=== PATIENT | female | born 1990 | race Caucasian/White ===

== ENCOUNTER 2016-04-03 16:20 | Emergency (ER) | payer OTHER ==
[~2016-04-03] VITALS: Ht 165.1 cm; Wt 86.2 kg
[~2016-04-03 16:20] MED LIST: FLEXERIL10 MG PO; FLUTICASON0.05 MG/A2 NAS; PERCOCET 325 MG1 TA2 PO; SEASONIQUE 30 M1 TAB PO; TYLENOL #31 TAB PO; VITAMIN D1000 IU PO; ZITHROMAX Z-PA250 M1 PO
[2016-04-03 17:05] LABS: ABSOLUTE BASOPHIL COUNT 0.1 /CUMM (0.0-0.2); ABSOLUTE EOSINOPHIL COUNT 0.1 /CUMM (0.0-0.7); ABSOLUTE GRANULOCYTE CT 8.2 /CUMM (1.4-6.5); ABSOLUTE LYMPH COUNT 2.3 /CUMM (1.2-3.4); ABSOLUTE MONOCYTE COUNT 0.8 /CUMM (0.10-0.60); BASOPHIL % 0.5 % (0.0-2.0); EOSINOPHIL % 0.9 % (0-5); GRANULOCYTE % 71.4 % (42.2-75.2); HEMATOCRIT 39.2 % (37-47); MEAN CORPUSCULAR HGB 31.9 PG (27.0-31.0); MEAN CORPUSCULAR HGB CONC 33.9 G/DL (33.0-37.0); MEAN CORPUSCULAR VOLUME 94.2 FL (81.0-99.0); MEAN PLATELET VOLUME 8.1 FL (7.4-10.4); PLATELET COUNT 267 /CUMM (130-400); RBC DISTRIBUTION WIDTH 12.5 % (11.5-14.5); RED BLOOD CELL CT 4.16 /CUMM (4.20-5.40); WHITE BLOOD CELL COUNT 11.5 /CUMM (4.8-10.8)
--- NOTE | 2016-04-03 17:56 | ED GI/GU/ABDOMINAL COMPLAINT ---
History of Present Illness General Chief Complaint: Female Urogenital Problems Stated Complaint: CRAMPING W/BLEEDING, APPROX 4 WEEKS PREG Source: patient Exam Limitations: no limitations Vital Signs & Intake/Output Vital Signs & Intake/Output Vital Signs Date Time Temp Pulse Resp B/P Pulse O2 O2 Flow FiO2 Ox Delivery Rate 04/03 1946 98.2 88 18 124/72 98 Room Air Room Air 04/03 1624 98.0 94 18 129/75 100 Room Air ED Intake and Output 04/04 0000 04/03 1200 Intake Total Output Total Balance Patient 190 lb Weight Allergies Coded Allergies: NO KNOWN ALLERGIES (04/15/14) Reconcile Medications No Known Home Medications Triage Note: PT ?4WEEKS TO TRIAGE WITH C/O LOWER ABD CRAMPING AND VAGINAL SPOTTING SINCE YESTERDAY, ALSO PT PASSED VAGINAL BLOOD CLOT YESTERDAY. PT DIDN'T SEE HER OBGYN YET, TOOK TEST A WEEK AGO AND IT WAS POSITIVE. VSS. . HX OF . Triage Nurses Notes Reviewed? yes ? Y Is pt currently ? No HPI: THIS PATIENT IS A 25-YEAR-OLD G3A2P0 female who presented to the emergency department today for evaluation of vaginal bleeding. The patient reported that approximately a week and a half ago she took a home test which was positive. She reported that she does not currently have an LICENSED LOAN OFFICER ASSISTANT and has not had an ultrasound confirming the at this time. The patient reported that yesterday she passed one clot and then since that time she has had some, "orange-colored," vaginal discharge. She reported some mild, 4 out of 10 left lower quadrant abdominal cramping which is nonradiating and intermittent. She reported that she had her first miscarriage around the first month of and she had an emergent surgery for a miscarriage in the sixth month of her second . The patient reported some associated nausea. She denied any vomiting, fevers, chills, back pain, urinary burning, urgency, frequency, blood in the urine, or any other associated symptoms. Past History Travel History Traveled to [place] past 21 day No Medical History Any Pertinent Medical History? see below for history Neurological: NONE EENT: NONE Cardiovascular: NONE Respiratory: NONE Gastrointestinal: NONE Hepatic: NONE Renal: NONE Musculoskeletal: NONE Psychiatric: NONE Endocrine: NONE Blood Disorders: NONE Cancer(s): NONE Surgical History Surgical History: MISCARRIAGE IN 6 MONTH OF Psychosocial History What is your primary language Latvian Tobacco Use: Current Daily Use Daily Tobacco Use Amount/Type: =< 4 Cigarettes daily ETOH Use: denies use Illicit Drug Use: denies illicit drug use Family History Hx Contributory? No Review of Systems Review of Systems Constitutional: Reports: no symptoms. EENTM: Reports: no symptoms. Respiratory: Reports: no symptoms. Cardiovascular: Reports: no symptoms. GI: Reports: see HPI. Genitourinary: Reports: see HPI. Musculoskeletal: Reports: no symptoms. Skin: Reports: no symptoms. Neurological/Psychological: Reports: no symptoms. All Other Systems: Reviewed and Negative Physical Exam Physical Exam Gastrointestinal: normal bowel sounds, soft, no organomegaly, MILD TENDERNESS TO PALPATION IN THE LEFT GROIN REGION. nO mCbURNEY'S POINT TENDERNESS. nEGATIVE [place] SIGN. nEGATIVE rOVSING'S AND PSOAS SIGN. nO REBOUND OR GUARDING. Comments: Well-developed well-nourished person in no acute distress HEENT: Normal EENT exam, head normocephalic, moist mucous membranes Neck: Supple Back: Normal gait Cardiovascular: Regular rate and rhythm with no murmurs Respiratory: No respiratory distress. Speaking in full sentences Extremity: Normal and equal pulses Neuro: Alert oriented x3, cranial nerves II through XII grossly intact. Skin: No appreciable rash on exposed skin, skin is warm and dry. Psych: Mood and affect is normal Core Measures ACS in differential dx? No Severe Sepsis Present: No Septic Shock Present: No Progress Differential Diagnosis: appendicitis, biliary colic, bowel obstruction, colon cancer, cholecystitis, diverticulitis, ectopic , endometritis, gastritis, hepatitis, ischemic bowel, inflamm bowel dis, intrauterine , kidney stone, ovarian cyst, ovarian torsion, pancreatitis, PID/cervicitis, PUD/ GERD, perforated viscous, SBO, threatened AB, UTI/pyelo Plan of Care: Orders Procedure Date/time Status TYPE & SCREEN (NOT X-MATCH) 04/03 1656 Complete HUMAN BETA HCG TITRE 04/03 1649 Complete COMPREHENSIVE METABOLIC PANEL 04/03 1649 Complete CBC WITHOUT DIFFERENTIAL 04/03 1649 Complete Laboratory Tests 04/03/16 1655: Anion Gap 11, Estimated GFR > 60, BUN/Creatinine Ratio 23.3, Glucose 83, Calcium 9.4, Total Bilirubin 0.3, AST 21, ALT 37, Alkaline Phosphatase 61, Total Protein 7.3, Albumin 4.4, Globulin 2.9, Albumin/Globulin Ratio 1.5, Beta HCG, Quant 244346.0, CBC w Diff NO MAN DIFF REQ, RBC 4.16 L, MCV 94.2, MCH 31.9 H, RDW 12.5, MPV 8.1, Gran % 71.4, Lymphocytes % 20.0 L, Monocytes % 7.2, Eosinophils % 0.9, Basophils % 0.5, Absolute Granulocytes 8.2 H, Absolute Lymphocytes 2.3, Absolute Monocytes 0.8 H, Absolute Eosinophils 0.1, Absolute Basophils 0.1, PUBS MCHC 33.9 Diagnostic Imaging: Viewed by Me: Ultrasound. Discussed w/RAD: Ultrasound. Radiology Impression: PATIENT: CAROLYN VARELA PRESENT AGE: 25 PATIENT ACCOUNT NO: [id number] : 92 LOCATION: [facility] ORDERING PHYSICIAN: BOY ELLIOTT PA-C SERVICE DATE: 04/03/16 EXAM TYPE: US - US TRANSVAG EXAMINATION: US TRANSVAGINAL CLINICAL INFORMATION: Bleeding/. COMPARISON: Pelvic ultrasound 04/06/2012. TECHNIQUE: Real-time transabdominal and transvaginal pelvic ultrasound is performed. FINDINGS: Single intrauterine gestational sac is appreciated. A yolk sac and pole are seen. movements are seen. [place]-rump length measures 1.6 cm correlating with a sonographic gestational age of 8 weeks 1 day and an estimated delivery date of 11/18/2016. heart rate measures 151 bpm. No additional gestational sac is appreciated. Suspect small volume subchorionic hematoma that can be followed. The right ovary is not visualized. The left ovary measures 4.9 x 3.9 x 2.2 cm. There is a 4.0 x 2.9 x 2.9 cm simple left ovarian cyst. Normal arterial and venous waveforms are appreciated. IMPRESSION: - Single live intrauterine gestational sac with a sonographic gestational age of 8 weeks 1 day and an estimated delivery date of 11/18/2016. heart rate measures 151 bpm and movements are appreciated. - Suspect small volume subchorionic hematoma that can be followed. - There is a 4.0 x 2.9 x 2.9 cm simple left ovarian cyst. There is no sonographic evidence of active left ovarian torsion. - The right ovary is not visualized on this study. DICTATED BY: IRENE DANIELS MD DATE/TIME DICTATED:04/03/161911 ORTHOTIST PROSTHETIST:TRAVIS DATE/TIME TRANSCRIBED:04/03/161911 CONFIDENTIAL, DO NOT COPY WITHOUT APPROPRIATE AUTHORIZATION. <Electronically signed in Other Vendor System> SIGNED BY: IRENE DANIELS MD 04/03/161918 Initial ED EKG: none Comments: 04/03/2016 5:55:33 PM: The patient is refusing any medication for nausea or pain at this time. Departure Departure Disposition: HOME OR SELF CARE Condition: Stable Clinical Impression Primary Impression: Vaginal bleeding Referrals: WENDY MCKEON DO (PCP/Family) YULY ZABALA,CARLITOS Rivas Additional Instructions: Please rest and avoid any strenuous activity. You may take [id number] Tylenol for pain. Please call the LICENSED LOAN OFFICER ASSISTANT whose information has been provided to you in this packet for follow-up and to begin scheduling your regular care. Please begin taking vitamins. Return to the emergency department for any worsening symptoms, worsening abdominal pain, heavier vaginal bleeding, or for any other concerns. Departure Forms: Customer Survey General Discharge Information Prescriptions: Current Visit Scripts No Known Home Medications
--- NOTE | 2016-04-03 19:19 | ULTRASOUND REPORT ---
EXAMINATION: US TRANSVAGINAL CLINICAL INFORMATION: Bleeding/. COMPARISON: Pelvic ultrasound 04/06/2012. TECHNIQUE: Real-time transabdominal and transvaginal pelvic ultrasound is performed. FINDINGS: Single intrauterine gestational sac is appreciated. A yolk sac and pole are seen. movements are seen. [place]-rump length measures 1.6 cm correlating with a sonographic gestational age of 8 weeks 1 day and an estimated delivery date of 11/18/2016. heart rate measures 151 bpm. No additional gestational sac is appreciated. Suspect small volume subchorionic hematoma that can be followed. The right ovary is not visualized. The left ovary measures 4.9 x 3.9 x 2.2 cm. There is a 4.0 x 2.9 x 2.9 cm simple left ovarian cyst. Normal arterial and venous waveforms are appreciated. IMPRESSION: - Single live intrauterine gestational sac with a sonographic gestational age of 8 weeks 1 day and an estimated delivery date of 11/18/2016. heart rate measures 151 bpm and movements are appreciated. - Suspect small volume subchorionic hematoma that can be followed. - There is a 4.0 x 2.9 x 2.9 cm simple left ovarian cyst. There is no sonographic evidence of active left ovarian torsion. - The right ovary is not visualized on this study.
[2016-04-03 19:47] VITALS: BP 124/72
== END 2016-04-03 19:48 ==
LOC: ERH 16:20
PROVIDERS: Physician Assistant Surgical
DX: O20.9 Hemorrhage in early pregnancy, unspecified (principal)
CPT/HCPCS: 36415; 76817